=== PATIENT | male | born 1955 | race Caucasian/White ===

== ENCOUNTER → 2017-01-06 | Outpatient (CLI) | payer OTHER ==
[~2017-01-06] VITALS: Ht 180.3 cm; Wt 84.4 kg
[~2017-01-06] MED LIST: ASPIRIN325; CRESTOR10 MG PO; FISH OIL 1,001000 M2 PO; GLUCOSAMINE HC500 MG PO; IBUPROFEN 200200 M1 PO; LIORESAL 10 MG10 MG PO; LIPITOR; NABUMETONE 750750 M1 PO; NORCO 5-325 TA1 EACH PO; UNICOMPLEX M TA1 TA1 PO; VITAMINC500 PO; ZETIA10 MG PO; [UNRECOGNIZED DRUG - OTHER] PO
--- NOTE | ~2017-01-06 | HPC ---
[facility] [place] [address] PAIN MANAGEMENT CONSULTATION Name: JUAN CARLOS NAJERA Room #: REG MIRA Scott#: [id number] Admission: 01/06/17 Attend Phys: Jhonathan Mcnamara DO Discharge: Date of : 55 Report #: [id number] THIS REPORT FOR: //name// CC: Mohit Mcnamara HISTORY OF PRESENT ILLNESS: The patient is a very pleasant 61-year-old gentleman. He has been treated for symptomatic lumbar radiculopathy over the past several years. I believe he was initially seen in May 2014, had a lumbar epidural injection at that time with dramatic improvement of baseline pain. He was seen in followup for some other pain issues, including myofascial pain and sacro-iliac related concerns. Nearly 2 years after initial LESI. in May of 2016, he had recurrence of radicular symptoms and was given a single epidural injection at L4-L5, 06/06/2016. In follow up 2 months later, 08/08/2016, the patient noted 80% relief following that injection for greater than 8 weeks, but the pain was beginning to recur, left greater than right. Physical exam at that time was compatible with lumbar radiculopathy. He was given a repeat epidural injection at L4-L5. The patient returns to the pain clinic today noting that his last injection, now 5 months ago, afforded 80% relief initially for several months, with gradual return of symptoms. The patient notes that his current pain is left greater than right leg, some low back pain , with pain rating up to an 8 on a 0-10 visual analog scale, exacerbated with standing and walking, some relief with stretching, medications and prior injections. He is doing regular stretching and exercises (physical therapy instructed). He takes ibuprofen [id number] up to 800 mg 3 times a day. He has paresthesia radiating into the left foot. PHYSICAL EXAMINATION: GENERAL: Reveals a 61-year-old gentleman, appearing somewhat younger than stated age. BMI is 26 kilograms per meter squared. VITAL SIGNS: Blood pressure is 111/74, pulse 60 and respirations are 14. NEUROLOGIC: Alert and oriented to person, place and time. Judged to be a reasonable historian. Cranial nerves 2-12 are grossly intact. Rises from the chair using armrest. Lower extremity strength is generally symmetric, with slight decreased left hip flexion. Diffuse tenderness across the low back. No discrete trigger points are noted. Deep tendon reflexes are preserved, but he does have positive straight leg raise at 30 degrees on the left. DIAGNOSTIC DATA: We reviewed somewhat dated MRI from April of 2014, noting left foraminal disk protrusion at L4-L5 and a small focal disk protrusion at L5-S1. ASSESSMENT: Symptomatic lumbar radiculopathy by clinical exam and history. The patient has had greater than 60% relief for greater than 2 months (actually nearly 4 months on last injection), with prior epidural injections [address] [address] PAIN MANAGEMENT CONSULTATION Name: JUAN CARLOS NAJERA Room #: REG MIRA Scott#: [id number] Admission: 01/06/17 Attend Phys: Jhonathan Mcnamara DO Discharge: Date of : 55 Report #: [id number] the past 7 months. He has failed conservative therapy including nonsteroidal anti-inflammatory medications and physical therapy. We will seek authorization for repeat lumbar epidural injection at L4-L5 at earliest possible date. Continue OTC anti-inflammatories, range of motion and stretch and physical therapy. <ELECTRONICALLY SIGNED> By: Jhonathan Mcnamara DO 01/06/17 1225 [id number] Jhonathan Mcnamara DO /nt
[2017-01-06 09:24] VITALS: BP 111/74
== END | disposition home or self-care (01) ==
LOC: PAIN 07:07
DX: M54.16 Radiculopathy, lumbar region (principal); G89.29 Other chronic pain

== ENCOUNTER → 2017-01-26 | Outpatient (CLI) | payer OTHER ==
[~2017-01-26] VITALS: Ht 180.3 cm; Wt 85.0 kg
--- NOTE | ~2017-01-26 | HPC ---
[facility] [place] [address] PAIN MANAGEMENT CONSULTATION Name: JUAN CARLOS NAJERA Room #: REG MIRA Scott#: [id number] Admission: 01/26/17 Attend Phys: Jhonathan Mcnamara DO Discharge: Date of : 55 Report #: [id number] THIS REPORT FOR: //name// CC: Mohit Mcnamara The patient is a very pleasant 61-year-old gentleman being treated for symptomatic lumbar radiculopathy. He has had 3 lumbar epidural injections with greater than 80% relief for many months. Last injection was in July 2016, he had prior injections in September 2014, and another injection in May 2014. He returns to pain clinic today noting pain has recurred, left low back. Classic L4 distribution. Slight decreased left hip flexion strength. Positive straight leg raise on this side. Symptoms have begun again back in 2013, when he had done fairly aggressive physical activity in October (a [employer]), a 10-mile obstacle course. He has had pain off and on since that time. MRI from April 2014, had notable anterolisthesis at L2-L3 and L4-L5; however, did have a focal disk herniation encroaching the left neural foramen. ASSESSMENT: 1. Symptomatic lumbar radiculopathy in an otherwise healthy gentleman. 2. Symptomatic lumbar radiculopathy. RECOMMENDATIONS: Epidural injection under fluoroscopy today, we will tentatively make an appointment for 3 weeks, the patient has again had very good relief for many months following these injections, we anticipate he will cancel. We did; however, today talk at length about possibly following up with surgeon for more definitive intervention and this has been an issue off and on since 2013, he has had about an injection every 6 months. I would like to at least have benefit of surgeon's opinion that to see if there is something minimally invasive that could be addressed rather than just treating symptoms. PROCEDURE: Lumbar epidural injection under fluoroscopy. PROCEDURE NOTE: After both written and informed consent to include risk of spinal cord damage, increased pain, weakness and dural puncture, the patient was taken to the fluoroscopy suite, placed in the prone position. After sterile prep and drape, a skin wheal with lidocaine was raised. A 22-gauge epidural Tuohy needle was inserted in the midline at L4-L5 with good loss to resistance. Negative aspiration for cerebrospinal fluid or blood was noted. Then 1 mL of Omnipaque under biplanar fluoroscopy showed good spread within the epidural space. This was followed with 80 mg of triamcinolone plus 1 mL of 1.5% preservative-free Xylocaine, 0.5 mL Xylocaine was then injected to flush the [address] [address] PAIN MANAGEMENT CONSULTATION Name: JUAN CARLOS NAJERA Room #: REG MIRA Scott#: [id number] Admission: 01/26/17 Attend Phys: Jhonathan Mcnamara DO Discharge: Date of : 55 Report #: [id number] needle; it was removed. The patient was monitored for an appropriate period of time and discharged in good and stable condition. <ELECTRONICALLY SIGNED> By: Jhonathan Mcnamara DO 01/27/17 1308 [id number] Jhonathan Mcnamara DO /nt
[2017-01-26 08:12] VITALS: BP 109/71
== END ==
LOC: PAIN 07:15
DX: M54.16 Radiculopathy, lumbar region (principal); Z87.891 Personal history of nicotine dependence

== ENCOUNTER → 2017-04-06 | Outpatient (CLI) | payer OTHER ==
[~2017-04-06] VITALS: Ht 177.8 cm; Wt 83.7 kg
[~2017-04-06] MED LIST changes: +ZANAFLEX4 MG PO
[2017-04-06 14:09] VITALS: BP 108/68
== END | disposition home or self-care (01) ==
LOC: PAIN 02-16 06:52
DX: M47.896 Other spondylosis, lumbar region (principal); M54.16 Radiculopathy, lumbar region; Z87.891 Personal history of nicotine dependence; Z79.1 Long term (current) use of non-steroidal anti-inflammatories (NSAID)

== ENCOUNTER → 2017-04-10 | Outpatient (CLI) | payer OTHER ==
[~2017-04-10] VITALS: Ht 177.8 cm; Wt 83.5 kg
[2017-04-10 15:27] VITALS: BP 109/72
== END | disposition home or self-care (01) ==
LOC: PAIN 06:58
DX: M47.816 Spondylosis without myelopathy or radiculopathy, lumbar region (principal); M48.06 Spinal stenosis, lumbar region; G89.29 Other chronic pain; Z87.891 Personal history of nicotine dependence; Z79.82 Long term (current) use of aspirin

== ENCOUNTER → 2017-05-01 | Outpatient (CLI) | payer OTHER ==
[~2017-05-01] VITALS: Ht 180.3 cm; Wt 82.1 kg
[~2017-05-01] MED LIST changes: +CELEBREX 200 M200 M1 PO
--- NOTE | ~2017-05-01 | HPC ---
[facility] [place] [address] PAIN MANAGEMENT CONSULTATION Name: JUAN CARLOS NAJERA Room #: REG MIRA Scott#: [id number] Admission: 05/01/17 Attend Phys: Jhonathan Mcnamara DO Discharge: Date of : 55 Report #: [id number] THIS REPORT FOR: //name// CC: Mohit Mcnamara The patient is a very pleasant 62-year-old gentleman being treated for lumbar radiculopathy, lumbar spondylosis, and axial back pain. The patient was last seen in the pain clinic 04/10/2017, I did right L3-L4, L4-L5 and L5-S1 facet joint injections under fluoroscopy. He returns to pain clinic today noting that while he had initially he felt 80% improvement that was really short, on hourly basis he noted that his pain was only actually about 20% overall improved and this was only for a short period of time. He returns to pain clinic today noting pain continues to be problematic, rates it is 7 on a VAS. Notes still significant interference with activity. Tried to play golf earlier in the week with significant exacerbation of pain. He notes golfing, standing, walking, and sitting all exacerbate pain. It is chronic low back, typically right-sided. At this point, denies any specific radicular symptoms. We had a prolonged visit today from 9:29-10:00 a.m., greater than 50% of the time was spent counseling the patient. I reviewed his MRI, which was accomplished on 04/27/2017, compared to a study approximately 3 years earlier (05/20/2014). I reviewed with the plastic model spine the patient's specific anatomy. Of note is at L2-L3, there is mild bilateral facet degenerative hypertrophic changes, L3-L4 shows marked bilateral facet hypertrophic changes, 0.2 cm anterolisthesis, moderate left neural foraminal narrowing. L4-L5 notes marked bilateral facet degenerative hypertrophic changes, left facet joint shows a small articular/synovial cyst. There is some moderate left neural foraminal narrowing at this level. PHYSICAL EXAMINATION: Again, shows pleasant 62-year-old gentleman, BMI is 25.3 kg/m2. Vital signs are stable as noted on the EMR, blood pressure 107/82, pulse is quite low at 38, though he has no presyncopal type symptoms; respirations 14, and oxygen saturation 95%. Rises from the chair using armrest. Diffuse tenderness in the right low back, pain is actually somewhat in the SI area, though Marito test and Gaenslen's test are both negative. Rotation and sidebending exacerbates low back pain. Again, only nominal relief following fluoroscopic-guided right L3-L4, L4-L5 and L5-S1 facet joint injections per the patient, though again he did note pain had been at 10 on admission, was down to 2 on discharge (?). [address] [address] PAIN MANAGEMENT CONSULTATION Name: JUAN CARLOS NAJERA Room #: REG MIRA Scott#: [id number] Admission: 05/01/17 Attend Phys: Jhonathan Mcnamara DO Discharge: Date of : 55 Report #: [id number] ASSESSMENT: Symptomatic lumbar radiculopathy with primary pain, axial back pain secondary to lumbar spondylosis. The patient asked about [facility]. He tells me he has sent his diagnostic studies to them. I suggested that from my knowledge that "laser" component typically has to do with using a laser to ablate the medial branch of the dorsal rami nerve. This would be indicated if he had good relief following facet joint injections. I did recommend he follow up with his back surgeon to see if there is any intervention that may be indicated. Unfortunately, from my diagnostic study and exam of the patient, it appeared he has primarily spondylitic axial back pain, again did not get significant relief with the facet joint injection, though did report his initial response as 80% relief when he left, I think we may consider at some point moving forward with medial branch dorsal rami diagnostic blocks with the patient giving a very specific hourly score. I suspect he may have had better short term relief than he remembers. Otherwise, we simply are left with nonsteroidal anti-inflammatory medications for pain; we have tried various agents in the past including nabumetone and ibuprofen. We elected to trial Celebrex 200 mg 1 a day for 30 days. Follow up at that time, earlier if needed. The patient was discharged in good and stable condition after a prolonged visit spent reviewing diagnostic studies and therapeutic options. <ELECTRONICALLY SIGNED> By: Jhonathan Mcnamara DO 05/03/17 0801 1155 [id number] Jhonathan Mcnamara DO /nt
[2017-05-01 09:24] VITALS: BP 107/82
== END ==
LOC: PAIN 06:36
DX: M47.26 Other spondylosis with radiculopathy, lumbar region (principal)

== ENCOUNTER → 2019-01-11 | Outpatient (CLI) | payer OTHER | LOC: CAT 07:57 | DX: J98.09 Other diseases of bronchus, not elsewhere classified (principal); R91.1 Solitary pulmonary nodule ==

== ENCOUNTER → 2020-04-09 | Outpatient (CLI) | payer OTHER, BC | LOC: SJCVC 13:53 | PROVIDERS: ATTEND Internal Medicine | DX: I25.10 Atherosclerotic heart disease of native coronary artery without angina pectoris (principal); E78.5 Hyperlipidemia, unspecified; M15.3 Secondary multiple arthritis; Z79.899 Other long term (current) drug therapy; Z87.891 Personal history of nicotine dependence ==